=== PATIENT | female | born 1985 | race Caucasian/White ===

== ENCOUNTER 2018-03-25 14:12 | Emergency (ER) | payer OTHER ==
[~2018-03-25] VITALS: Ht 170.2 cm; Wt 81.0 kg
[2018-03-25 14:17] VITALS: BP 155/76; PULSE 89; RESP 16; Ht 170.2 cm; Wt 81.0 kg
[2018-03-25] MEDS ORDERED: CYCL10TA7 PO (14:55)
[2018-03-25] MEDS ORDERED: NAPR-985 PO (14:55)
--- NOTE | 2018-03-25 15:29 | ERD ---
ER Documentation Chief Complaint Chief Complaint JAW INJURY FROM CHILD JUMPING UP INTO HER JAW TODAY HPI 32-year-old female presents emergency department complaining of left-sided jaw pain status post a child from her class jumped on her. Patient states that she is able to open up her mouth and closed. She denies any head injury, loss of consciousness, nausea vomiting dizziness headache. Nu[place] any visual changes. She has not taken medications ROS All systems reviewed and are negative except as per history of present illness. Medications Home Meds Active Scripts Naproxen* (Naprosyn*) 500 Mg Tablet, 500 MG PO BID PRN for PAIN AND/OR INFL AMMATION, #30 TAB Prov:DEBO NAYLOR PA-C 03/25/18 Cyclobenzaprine Hcl* (Cyclobenzaprine Hcl*) 10 Mg Tablet, 10 MG PO TID, #20 TAB Prov:DEBO NAYLOR PA-C 03/25/18 PMhx/Soc Medical and Surgical Hx: pt denies Medical Hx Physical Exam Vitals Vital Signs Date Temp Pulse Resp B/P (MAP) Pulse Ox O2 O2 Flow FiO2 Time Delivery Rate 03/25/18 98.9 89 16 155/76 100 14:17 (102) Physical Exam Const: No acute distress Head: Atraumatic Eyes: Normal Conjunctiva ENT: Normal External Ears, Nose and Mouth. Tender palpation over the left jaw, full range of motion, Neck: Full range of motion. No meningismus. Resp: Clear to auscultation bilaterally Cardio: Regular rate and rhythm, no murmurs Abd: Soft, non tender, non distended. Normal bowel sounds Skin: No petechiae or rashes Back: No midline or flank tenderness Ext: No cyanosis, or edema Neur: Awake and alert Psych: Normal Mood and Affect Procedures/MDM 32-year-old female presents emergency department complaining of left-sided jaw pain from her class jumping on her today. There was no signs of any fractures or dislocation. Patient is instructed to take anti-inflammatory naproxen and Flexeril as needed for muscle relaxation. I have given return precautions she understands agrees this plan Departure Diagnosis: Primary Impression: Injury of jaw Condition: Stable Patient Instructions: Helping Your Temporomandibular Joint (TMJ) Heal, Facial Contusion, No Wakeup, Tmj Syndrome Additional Instructions: FOLLOW UP WITH YOUR PRIMARY CARE PHYSICIAN KAYLEEORROW.Return to this facility if you are not improving as expected. Take all medicines as directed. Return to this facility if you are not improving as expected. DEBO NAYLOR PA-C Mar 25, 2018 15:29
== END 2018-03-25 16:17 | disposition home or self-care (01) ==
LOC: FTE 14:12
DX: S09.93XA Unspecified injury of face, initial encounter (principal); X58.XXXA Exposure to other specified factors, initial encounter; Y92.89 Other specified places as the place of occurrence of the external cause
CPT/HCPCS: 99283